=== PATIENT | male | born 1950 | race Caucasian/White ===

== ENCOUNTER 2023-11-22 11:30 | Day surgery (SDC) | payer OTHER ==
[~2023-11-22] VITALS: Ht 188 cm; Wt 76.2 kg
[2023-11-22] MEDS ORDERED: MIDAZOLAM HCL 5 MG/5 ML VIAL ONE (12:41)
[2023-11-22] MEDS ORDERED: fentaNYL CITRATE/PF 100 MCG/2 ML AMP ONE ×2 (12:41→13:38)
[2023-11-22 13:39] VITALS: O2SAT 99
[2023-11-22 15:18] VITALS: BP_SYST 120; PULSE 55; RESP 18
== END 2023-11-22 15:30 | disposition home or self-care (01) ==
LOC: SDS 11:30 → SMU 11:33 → SDS 15:30
PROVIDERS: ATTEND Surgery
DX: K92.1 Melena (principal); K64.8 Other hemorrhoids; F17.210 Nicotine dependence, cigarettes, uncomplicated; Z96.643 Presence of artificial hip joint, bilateral
CPT/HCPCS: 45380; 99152; 88305; 99153; G0378; J2250; J3010; 45378; 45385